=== PATIENT | male | born 1950 | race Caucasian/White ===

== ENCOUNTER 2017-02-19 16:10 | Emergency (ER) | payer MEDICARE, OTHER ==
--- NOTE | ~2017-02-19 | ER ---
PATIENT'S NAME: BEL ANAYA [facility] AGE: 66 Y [address] ROOM: [place] [address] LOCATION: [facility] ADMIT DATE: 02/19/2017 ER/Outpatient Report DISCHARGE DATE: 02/19/2017 FAMILY PHYSICIAN: Timo Johnson MD ATTENDING PHYSICIAN: Freddy Flowers Admission date and time are documented on the medical record. I saw the patient at 1615 hours. CHIEF COMPLAINT: Eight foot fall off a ladder. HISTORY OF PRESENT ILLNESS: The patient is a 66-year-old male who was up on a ladder about 2 hours prior to admission in the emergency room. The ladder went out from underneath him and he fell. He landed on his right foot heel, went down, and hit his buttock, coccyx, and hit the back of his head on the ground. He thinks that he may have lost consciousness briefly. He was brought to the emergency room about 2 hours after he fell for evaluation. The patient has right mid-lower back pain, coccyx pain, and little bit of posterior neck and occipital head pain. The patient initially had a little bit of right heel pain, but this has resolved. No chest pain or shortness of breath. No ribcage pain. No abdominal pain. No nausea, vomiting, or diarrhea. No incontinence of stool or urine. No skin eruptions, rashes, abrasions, contusions, lacerations, or swellings. The patient is not lightheaded or dizzy. Still questionable whether he lost consciousness. No other trauma. No recent colds, coughs, flus, fever, chills, or sweats. No eyes, ears, nose, or throat pain. No history of neuro changes or psych issues. He does have hypothyroidism. HOME MEDICATIONS: See attached medication list. ALLERGIES: NONE. SOCIAL HISTORY: Nonsmoker, nondrinker. SIGNIFICANT PAST MEDICAL HISTORY: Hypertension, glaucoma, anxiety, and hypothyroidism. OPERATIONS: Eye surgery. REVIEW OF SYSTEMS: PATIENT'S NAME: ARPAN ANAYARELL Maira [facility] AGE: 66 Y [address] ROOM: [place] [address] LOCATION: [facility] ADMIT DATE: 02/19/2017 ER/Outpatient Report DISCHARGE DATE: 02/19/2017 FAMILY PHYSICIAN: Timo Johnson MD ATTENDING PHYSICIAN: Freddy Flowers All systems reviewed by me are negative with the exception of those discussed in the history of present illness. PHYSICAL EXAMINATION: VITAL SIGNS: Temperature 98, tympanic, pulse 69, respirations 20, and O2 sat on room air was 96%. HEAD: Normocephalic. No abrasion, contusion, laceration, or swelling of the scalp or face. EYES: Evidence of cataracts. Sclerae and conjunctivae clear. No subconjunctival hemorrhages. EARS: Clear TMs bilaterally. No fluid in the ear canals. NOSE: Clear. No epistaxis. THROAT: Clear. Mucous membranes moist. Teeth, jaw intact. NECK: The patient has a little bit of tenderness posteriorly, but his range of motion is full. No nuchal rigidity, thyromegaly, or cervical adenopathy. SPINE: No deformity. No step-off. LUNGS: Clear. Good airflow. No rales, rhonchi, or wheezes. HEART: Regular. Pulses are palpable. No chest wall or ribcage pain or deformity. ABDOMEN: Soft, nondistended, nontender. Good bowel tones. No organomegaly or abnormal mass palpable. No CVA tenderness. PELVIS: Stable, nontender. EXTREMITIES: Moves all 4 extremities. No peripheral edema, cyanosis, or deformity. NEUROVASCULAR: Intact. SKIN: Clear. No skin eruptions or rash. LABORATORY DATA: CT scan of the head showed no intracranial bleed, midline shift, mass effect, or skull fracture. CT scan of the cervical, thoracic, and lumbosacral spine showed no acute fracture or subluxation. CT scan of the bony pelvis showed no acute fracture. All CT scans read by Radiology, see dictated transcribed reports. IMPRESSION: 1. Eight foot fall off a ladder with bruised right heel, bruised right thoracic, midthoracic, lumbar paraspinal muscles. Some mild tenderness in his occipital scalp and posterior cervical spine and neck. There was no abnormalities on CT scan of the head, cervical, thoracic, lumbosacral spine or pelvis. 2. Hypertension. 3. Glaucoma. 4. Hypothyroidism. 5. Anxiety. PATIENT'S NAME: BEL ANAYA [facility] AGE: 66 Y [address] ROOM: [place] [address] LOCATION: [facility] ADMIT DATE: 02/19/2017 ER/Outpatient Report DISCHARGE DATE: 02/19/2017 FAMILY PHYSICIAN: Timo Johnson MD ATTENDING PHYSICIAN: Freddy Flowers PLAN: The patient was dismissed home. Observation. Activity as tolerated. Continue present home medications and care. Ice to any sore areas intermittently as needed next 72 hours then as needed thereafter. Aleve 2 orally 2 times a day with food x5-7 days. Follow up with personal physician as needed. Discussion ensued with the patient and his family regarding my findings and recommendations, they understand. MD NICK TITUS/modl /[id number] d: 02/19/17 2326 t: 02/20/17 0608, OUTPATIENT REPORT
== END 2017-02-19 17:48 | disposition disaster alternative care site (69) ==
LOC: GACC 16:10
DX: S90.31XA Contusion of right foot, initial encounter (principal); S20.221A Contusion of right back wall of thorax, initial encounter; S30.0XXA Contusion of lower back and pelvis, initial encounter; E03.9 Hypothyroidism, unspecified; I10 Essential (primary) hypertension; F41.9 Anxiety disorder, unspecified; H40.9 Unspecified glaucoma; Z79.899 Other long term (current) drug therapy; W11.XXXA Fall on and from ladder, initial encounter